=== PATIENT | male | born 1965 | race Caucasian/White ===

== ENCOUNTER 2017-12-29 07:21 | Inpatient (IN) ==
[2017-12-29 08:19] LABS: Basophils % 0.8 % (0.0-0.8); Eosinophils % 0.6 % (0.00-10.9); Hematocrit 27.9 VOL% (42.0-52.0); Hemoglobin 9.4 GM/DL (14.0-18.0); Immature Granulocytes % 0.2 %; Immature Granulocytes Absolute 0.01 #; Lymphocytes # 0.5 10*3/uL (1.4-4.0); Lymphocytes % 10.6 % (21.2-54.2); Mean Corpuscular HGB Conc 33.7 GM/DL (32-36); Mean Corpuscular Hemoglobin 30 PG (27-34); Mean Corpuscular Volume 88.9 FL (87-102); Mean Platelet Volume 11.2 FL (9.6-12.0); Monocytes # 0.9 10*3/uL (0.11-0.8); Monocytes % 17.6 % (1.7-12.7); Neutrophils # 3.5 10*3/uL (1.4-7.4); Neutrophils % 70.2 % (38.7-73.9); Platelet Count 167 T/CUMM (130-400); Red Blood Count 3.14 MC/CUMM (3.8-5.5); Red Cell Distribution Width 20.2 % (9.3-17.3)
[2017-12-29] MEDS: SODIUM CHLORIDE 0.9% 1,000 ML IV SCH (08:20)
[2017-12-29 08:28] LABS: INR 1.7; PT Patient Result 17.8 SECS; Partial Thromboplastin Time 39.5 SECS (0-40)
[2017-12-29 08:37] LABS: Ammonia 33 UMOL/L (11-32)
[2017-12-29 08:42] LABS: Alanine Aminotransferase 31 U/L (16-61); Albumin 3.3 G/DL (3.4-5.0); Alkaline Phosphatase 114 U/L (45-117); Aspartate Amino Transferase 50 U/L (0-37); Band Neutrophils 1 % (0-10); Blood Urea Nitrogen 18 MG/DL (7-18); Calcium 8.3 MG/DL (8.5-10.1); Eosinophils 1 % (0-10); Glucose 110 MG/DL (74-106); Lymphocytes 11 % (20-55); Osmolality,Calculated 262.8 MOS/KG (273-304); Platelet Estimate Normal; Potassium 4.8 MMOL/L (3.5-5.1); Segmented Neutrophils 78 % (50-85); Sodium 130 MMOL/L (136-145); Total Cells Counted 100; Total Protein 7.3 G/DL (6.4-8.3)
[2017-12-29 08:43] LABS: Burr Cells Slight; Hypochromasia 1+; Microcytosis Slight
[2017-12-29] MEDS ORDERED: ONDANSETRON 4 MG/2 ML VIAL IV PRN (11:16)
[2017-12-29] MEDS: FOLIC ACID 1 MG TABLET PO SCH (13:34)
[2017-12-29] MEDS: LEVOFLOXACIN INJ 500 MG in PREMIX 1 EACH IV SCH (13:34)
[2017-12-29] MEDS: THIAMINE 100 MG TABLET PO SCH (13:34)
[2017-12-29] MEDS: MULTIVITAMIN (CENTRUM) TABLET PO SCH (13:34)
[2017-12-29] MEDS: LACTULOSE 20 GM/30 ML UDCUP PO SCH ×3 (13:34→21:05)
[2017-12-29] MEDS: LORazepam 2 MG/1 ML VIAL IV PRN (21:05)
[2017-12-29] MEDS: FUROSEMIDE 40 MG TABLET PO SCH (21:05)
[2017-12-30] MEDS: LACTULOSE 20 GM/30 ML UDCUP PO SCH ×6 (01:16→21:55)
[2017-12-30 05:47] LABS: Basophils % 0.5 % (0.0-0.8); Eosinophils % 0.7 % (0.00-10.9); Hematocrit 26.4 VOL% (42.0-52.0); Hemoglobin 8.9 GM/DL (14.0-18.0); Immature Granulocytes % 0.3 %; Immature Granulocytes Absolute 0.02 #; Lymphocytes # 1.1 10*3/uL (1.4-4.0); Lymphocytes % 17.6 % (21.2-54.2); Mean Corpuscular HGB Conc 33.7 GM/DL (32-36); Mean Corpuscular Hemoglobin 29 PG (27-34); Mean Corpuscular Volume 86.8 FL (87-102); Mean Platelet Volume 11.9 FL (9.6-12.0); Neutrophils # 3.9 10*3/uL (1.4-7.4); Neutrophils % 64.9 % (38.7-73.9); Platelet Count 163 T/CUMM (130-400); Red Blood Count 3.04 MC/CUMM (3.8-5.5); Red Cell Distribution Width 19.9 % (9.3-17.3)
[2017-12-30 06:16] LABS: Band Neutrophils 1 % (0-10); Eosinophils 2 % (0-10); Lymphocytes 15 % (20-55); Metamyelocytes 1 %; Segmented Neutrophils 69 % (50-85); Total Cells Counted 100
[2017-12-30 06:17] LABS: Acanthocytes Few; Burr Cells 1+; Hypochromasia 1+; Microcytosis 1+
[2017-12-30 06:18] LABS: Target Cells Slight
[2017-12-30] MEDS: LORazepam 2 MG/1 ML VIAL IV PRN ×2 (06:22→11:42)
[2017-12-30 07:14] LABS: Albumin 3.2 G/DL (3.4-5.0); Bilirubin,Total 11.5 MG/DL (0.2-1.0); Calcium 8.7 MG/DL (8.5-10.1); Osmolality,Calculated 259.1 MOS/KG (273-304); Total Protein 6.9 G/DL (6.4-8.3)
[2017-12-30] MEDS: FUROSEMIDE 40 MG TABLET PO SCH ×2 (09:51→20:11)
[2017-12-30] MEDS: PANTOPRAZOLE 40 MG TABLET PO SCH (09:51)
[2017-12-30] MEDS: MULTIVITAMIN (CENTRUM) TABLET PO SCH (09:51)
[2017-12-30] MEDS: THIAMINE 100 MG TABLET PO SCH (09:51)
[2017-12-30] MEDS: FOLIC ACID 1 MG TABLET PO SCH (09:51)
[2017-12-30] MEDS: SPIRONOLACTONE 50 MG TABLET PO SCH (09:51)
[2017-12-30] MEDS: LEVOFLOXACIN INJ 500 MG in PREMIX 1 EACH IV SCH (11:44)
[2017-12-30] MEDS ORDERED: HALOPERIDOL 5 MG/ML AMP IV PRN (13:22)
[2017-12-30] MEDS ORDERED: SODIUM CHLORIDE 0.9% 1,000 ML IV SCH (13:30)
[2017-12-30] MEDS: SODIUM CHLORIDE 0.9% 1,000 ML IV SCH (14:22)
[2017-12-30] MEDS: RIFAXIMIN 550 MG TABLET PO SCH ×2 (14:23→20:11)
[2017-12-31] MEDS: SODIUM CHLORIDE 0.9% 1,000 ML IV SCH (00:05)
[2017-12-31] MEDS: LACTULOSE 20 GM/30 ML UDCUP PO SCH ×5 (02:50→21:14)
[2017-12-31 05:43] LABS: Basophils # 0.1 10*3/uL (0.0-0.2); Basophils % 1.1 % (0.0-0.8); Eosinophils % 0.7 % (0.00-10.9); Hematocrit 26.1 VOL% (42.0-52.0); Hemoglobin 8.9 GM/DL (14.0-18.0); Immature Granulocytes % 0.2 %; Immature Granulocytes Absolute 0.01 #; Lymphocytes # 1.2 10*3/uL (1.4-4.0); Lymphocytes % 21.4 % (21.2-54.2); Mean Corpuscular HGB Conc 34.1 GM/DL (32-36); Mean Corpuscular Hemoglobin 29 PG (27-34); Mean Corpuscular Volume 85.6 FL (87-102); Mean Platelet Volume 9.6 FL (9.6-12.0); Monocytes % 18.2 % (1.7-12.7); Neutrophils # 3.2 10*3/uL (1.4-7.4); Neutrophils % 58.4 % (38.7-73.9); Platelet Count 143 T/CUMM (130-400); Red Blood Count 3.05 MC/CUMM (3.8-5.5); Red Cell Distribution Width 19.6 % (9.3-17.3); White Blood Count 5.4 T/CUMM (4-12)
[2017-12-31 06:17] LABS: Burr Cells Slight; Eosinophils 2 % (0-10); Hypochromasia 1+; Lymphocytes 15 % (20-55); Microcytosis 1+; Ovalocytes Slight; Platelet Estimate Normal; Segmented Neutrophils 69 % (50-85); Total Cells Counted 100
[2017-12-31 06:22] LABS: Albumin 2.9 G/DL (3.4-5.0); Osmolality,Calculated 265.5 MOS/KG (273-304); Potassium 3.9 MMOL/L (3.5-5.1); Total Protein 6.7 G/DL (6.4-8.3)
[2017-12-31 06:25] LABS: Bilirubin,Total 13.1 MG/DL (0.2-1.0)
[2017-12-31] MEDS: FOLIC ACID 1 MG TABLET PO SCH (08:45)
[2017-12-31] MEDS: MULTIVITAMIN (CENTRUM) TABLET PO SCH (08:45)
[2017-12-31] MEDS: SPIRONOLACTONE 50 MG TABLET PO SCH (08:45)
[2017-12-31] MEDS: RIFAXIMIN 550 MG TABLET PO SCH ×2 (08:45→21:14)
[2017-12-31] MEDS: PANTOPRAZOLE 40 MG TABLET PO SCH (08:45)
[2017-12-31] MEDS: FUROSEMIDE 40 MG TABLET PO SCH (08:45)
[2017-12-31] MEDS: THIAMINE 100 MG TABLET PO SCH (08:45)
[2017-12-31] MEDS: LEVOFLOXACIN INJ 500 MG in PREMIX 1 EACH IV SCH (11:37)
[2017-12-31 12:21] LABS: Apearance,Urine CLEAR (Clear); Bilirubin,Urine Negative (Negative); Blood, Urine Negative (Negative); Glucose,Urine (UA) Negative (Negative); Hyaline Casts,Urine 10 /LPF (0-3); Ketones,Urine Negative (Negative); Mucus,Urine Occasional /LPF (Occasional); Nitrite,Urine Negative (Negative); Protein,Urine Negative; RBC,Urine 1 /HPF (0-4); Squamous Epithelial Cell,Urine Occasional /HPF (0-10); Urine Color Yellow (Yellow); Urine Specific Gravity 1.006 (1.001-1.035); Urine Urobilinogen < 2.0 EU/DL (0.2-1.0); WBC,Urine 1 /HPF (0-6)
[2018-01-01] MEDS: LACTULOSE 20 GM/30 ML UDCUP PO SCH ×3 (05:48→21:38)
[2018-01-01 06:24] LABS: Basophils % 0.7 % (0.0-0.8); Eosinophils # 0.1 10*3/uL (0.0-0.87); Hematocrit 24.7 VOL% (42.0-52.0); Hemoglobin 8.5 GM/DL (14.0-18.0); Immature Granulocytes % 0.2 %; Immature Granulocytes Absolute 0.01 #; Lymphocytes # 1.2 10*3/uL (1.4-4.0); Lymphocytes % 22.1 % (21.2-54.2); Mean Corpuscular HGB Conc 34.4 GM/DL (32-36); Mean Corpuscular Hemoglobin 29 PG (27-34); Mean Corpuscular Volume 85.5 FL (87-102); Mean Platelet Volume 10.7 FL (9.6-12.0); Monocytes # 0.8 10*3/uL (0.11-0.8); Monocytes % 14.3 % (1.7-12.7); Neutrophils # 3.3 10*3/uL (1.4-7.4); Neutrophils % 60.7 % (38.7-73.9); Platelet Count 144 T/CUMM (130-400); Red Blood Count 2.89 MC/CUMM (3.8-5.5); Red Cell Distribution Width 18.6 % (9.3-17.3); White Blood Count 5.5 T/CUMM (4-12)
[2018-01-01 07:08] LABS: Albumin 2.6 G/DL (3.4-5.0); Bilirubin,Total 10.2 MG/DL (0.2-1.0); Calcium 8.2 MG/DL (8.5-10.1); Osmolality,Calculated 255.2 MOS/KG (273-304); Potassium 3.7 MMOL/L (3.5-5.1); Total Protein 6.2 G/DL (6.4-8.3)
[2018-01-01] MEDS: RIFAXIMIN 550 MG TABLET PO SCH ×2 (08:29→21:38)
[2018-01-01] MEDS: SPIRONOLACTONE 50 MG TABLET PO SCH (08:29)
[2018-01-01] MEDS: PANTOPRAZOLE 40 MG TABLET PO SCH (08:29)
[2018-01-01] MEDS: MULTIVITAMIN (CENTRUM) TABLET PO SCH (08:29)
[2018-01-01] MEDS: FOLIC ACID 1 MG TABLET PO SCH (08:29)
[2018-01-01] MEDS: THIAMINE 100 MG TABLET PO SCH (08:30)
[2018-01-01] MEDS ORDERED: FUROSEMIDE 40 MG TABLET PO SCH (09:00)
[2018-01-01] MEDS ORDERED: MAGNESIUM SULF RIDER 2 GM in PREMIX 1 EACH IV ONE (12:36)
[2018-01-01] MEDS ORDERED: SPIRONOLACTONE 50 MG TABLET PO SCH (12:36)
[2018-01-01] MEDS ORDERED: FUROSEMIDE 20 MG TABLET PO SCH (12:36)
[2018-01-01] MEDS ORDERED: traZODone 50 MG TABLET PO PRN (12:37)
[2018-01-01] MEDS: LEVOFLOXACIN INJ 500 MG in PREMIX 1 EACH IV SCH (13:10)
[2018-01-01] MEDS ORDERED: CIPROFLOXACIN 500 MG TABLET PO SCH (13:30)
[2018-01-02 04:23] LABS: Basophils % 0.6 % (0.0-0.8); Eosinophils # 0.1 10*3/uL (0.0-0.87); Eosinophils % 2.1 % (0.00-10.9); Hematocrit 24.2 VOL% (42.0-52.0); Hemoglobin 8.1 GM/DL (14.0-18.0); Immature Granulocytes % 0.3 %; Immature Granulocytes Absolute 0.02 #; Lymphocytes # 1.1 10*3/uL (1.4-4.0); Lymphocytes % 16.4 % (21.2-54.2); Mean Corpuscular HGB Conc 33.5 GM/DL (32-36); Mean Corpuscular Hemoglobin 29 PG (27-34); Mean Corpuscular Volume 87.1 FL (87-102); Mean Platelet Volume 9.6 FL (9.6-12.0); Monocytes # 1.2 10*3/uL (0.11-0.8); Monocytes % 17.7 % (1.7-12.7); Neutrophils # 4.2 10*3/uL (1.4-7.4); Neutrophils % 62.9 % (38.7-73.9); Platelet Count 117 T/CUMM (130-400); Red Blood Count 2.78 MC/CUMM (3.8-5.5); Red Cell Distribution Width 18.6 % (9.3-17.3); White Blood Count 6.7 T/CUMM (4-12)
[2018-01-02 05:00] LABS: Acanthocytes 1+; Band Neutrophils 4 % (0-10); Lymphocytes 29 % (20-55); Platelet Estimate Decreased; Schistocytes Few; Segmented Neutrophils 60 % (50-85); Total Cells Counted 100
[2018-01-02 05:04] LABS: Albumin 2.5 G/DL (3.4-5.0); Bilirubin,Direct 3.88 MG/DL (0.0-0.20); Bilirubin,Indirect 5.3 MG/DL (0.0-1.0); Bilirubin,Total 9.2 MG/DL (0.2-1.0); Calcium 8.3 MG/DL (8.5-10.1); Osmolality,Calculated 259.1 MOS/KG (273-304); Potassium 3.9 MMOL/L (3.5-5.1); Total Protein 6.2 G/DL (6.4-8.3)
[2018-01-02] MEDS: LACTULOSE 20 GM/30 ML UDCUP PO SCH (05:47)
[2018-01-02 07:59] VITALS: BP 130/73
[2018-01-02] MEDS: MULTIVITAMIN (CENTRUM) TABLET PO SCH (08:01)
[2018-01-02] MEDS: PANTOPRAZOLE 40 MG TABLET PO SCH (08:02)
[2018-01-02] MEDS: THIAMINE 100 MG TABLET PO SCH (08:02)
[2018-01-02] MEDS: RIFAXIMIN 550 MG TABLET PO SCH (08:02)
[2018-01-02] MEDS: FOLIC ACID 1 MG TABLET PO SCH (08:02)
== END 2018-01-02 11:45 | disposition home or self-care (01) | DRG 441 ==
LOC: N.ED 07:21 → N.EDINP 09:03 → SUATTDRO 09:03 → N.4E 10:05
PROVIDERS: ADMIT Internal Medicine; ATTEND Internal Medicine

== ENCOUNTER 2018-02-20 13:00 | Inpatient (IN) ==
[2018-02-20 15:04] LABS: Basophils % 0.4 % (0.0-0.8); Eosinophils # 0.5 10*3/uL (0.0-0.87); Eosinophils % 6.3 % (0.00-10.9); Hematocrit 18.2 VOL% (42.0-52.0); Immature Granulocytes % 1.3 %; Immature Granulocytes Absolute 0.11 #; Lymphocytes # 0.8 10*3/uL (1.4-4.0); Lymphocytes % 9.9 % (21.2-54.2); Mean Corpuscular HGB Conc 34.6 GM/DL (32-36); Mean Corpuscular Hemoglobin 32 PG (27-34); Mean Corpuscular Volume 92.9 FL (87-102); Mean Platelet Volume 9.3 FL (9.6-12.0); Monocytes # 0.9 10*3/uL (0.11-0.8); Monocytes % 10.3 % (1.7-12.7); Neutrophils % 71.8 % (38.7-73.9); Red Blood Count 1.96 MC/CUMM (3.8-5.5); Red Cell Distribution Width 16.3 % (9.3-17.3); White Blood Count 8.3 T/CUMM (4-12)
[2018-02-20 15:07] LABS: Platelet Count 76 T/CUMM (130-400)
[2018-02-20 15:09] LABS: Hemoglobin 6.3 GM/DL (14.0-18.0)
[2018-02-20 15:14] LABS: INR 1.8; PT Patient Result 18.8 SECS
[2018-02-20 15:15] LABS: Partial Thromboplastin Time 49.3 SECS (0-40)
[2018-02-20 15:21] LABS: Albumin 2.2 G/DL (3.4-5.0); Calcium 8.2 MG/DL (8.5-10.1); Osmolality,Calculated 250.1 MOS/KG (273-304); Potassium 3.9 MMOL/L (3.5-5.1); Total Protein 5.3 G/DL (6.4-8.3)
[2018-02-20 15:25] LABS: Bilirubin,Total 16.4 MG/DL (0.2-1.0)
[2018-02-20] MEDS ORDERED: LACTATED RINGERS 500 ML IV ONE (15:29)
[2018-02-20] MEDS ORDERED: AZITHROMYCIN INJ 500 MG in SODIUM CHLORIDE 0.9% 250 ML IV STA (15:30)
[2018-02-20] MEDS ORDERED: VANCOMYCIN INJ 1,500 MG in SODIUM CHLORIDE 0.9% 500 ML IV STA (15:30)
[2018-02-20] MEDS ORDERED: CEFEPIME 1,000 MG in SODIUM CHLORIDE 0.9% 100 ML IV STA (15:30)
[2018-02-20] MEDS ORDERED: ONDANSETRON 4 MG/2 ML VIAL IV PRN (15:51)
[2018-02-20] MEDS ORDERED: ACETAMINOPHEN 325 MG TABLET PO PRN (15:51)
[2018-02-20] MEDS ORDERED: DOCUSATE SODIUM 100 MG CAPSULE PO PRN (15:51)
[2018-02-20 16:00] LABS: Acanthocytes 4+
[2018-02-20 16:01] LABS: Anisocytosis 2+; Hypochromasia 1+; Poikilocytosis 2+
[2018-02-20 16:02] LABS: Platelet Estimate Decreased; Polychromasia Few; Target Cells Slight
[2018-02-20] MEDS ORDERED: SODIUM CHLORIDE 0.9% 1,000 ML IV PRN (16:30)
[2018-02-20] MEDS ORDERED: AZITHROMYCIN 500 MG VIAL IV ONE (16:32)
[2018-02-20] MEDS ORDERED: PNEUMOCOCCAL VACCINE (23 VALENT) 0.5 ML VIAL IM ONE (17:19)
[2018-02-20] MEDS: ALBUTEROL 2.5 MG/3 ML NEB RESP TX SCH (19:13)
[2018-02-20] MEDS: RIFAXIMIN 550 MG TABLET PO SCH (21:02)
[2018-02-20] MEDS: LACTULOSE 20 GM/30 ML UDCUP PO SCH (21:02)
[2018-02-20] MEDS: CIPROFLOXACIN 500 MG TABLET PO SCH (21:08)
[2018-02-20] MEDS: cefTRIAXone 2,000 MG in SYRINGE 1 EACH IV SCH (21:59)
[2018-02-20] MEDS: FAMOTIDINE 20 MG/2 ML VIAL IV SCH (21:59)
[2018-02-20] MEDS ORDERED: ZALEPLON 5 MG CAPSULE PO PRN (22:23)
[2018-02-21] MEDS: ALBUTEROL 2.5 MG/3 ML NEB RESP TX SCH ×4 (00:40→18:51)
[2018-02-21 02:45] LABS: Basophils % 0.4 % (0.0-0.8); Eosinophils # 0.6 10*3/uL (0.0-0.87); Eosinophils % 7.7 % (0.00-10.9); Hematocrit 19.1 VOL% (42.0-52.0); Hemoglobin 6.5 GM/DL (14.0-18.0); Immature Granulocytes % 1.1 %; Immature Granulocytes Absolute 0.09 #; Lymphocytes # 0.9 10*3/uL (1.4-4.0); Mean Corpuscular Hemoglobin 32 PG (27-34); Mean Corpuscular Volume 94.1 FL (87-102); Mean Platelet Volume 9.3 FL (9.6-12.0); Monocytes # 0.9 10*3/uL (0.11-0.8); Monocytes % 10.9 % (1.7-12.7); Neutrophils # 5.6 10*3/uL (1.4-7.4); Neutrophils % 68.9 % (38.7-73.9); Red Blood Count 2.03 MC/CUMM (3.8-5.5); Red Cell Distribution Width 15.9 % (9.3-17.3); White Blood Count 8.2 T/CUMM (4-12)
[2018-02-21 02:49] LABS: Platelet Count 62 T/CUMM (130-400)
[2018-02-21 03:02] LABS: Osmolality,Calculated 250.1 MOS/KG (273-304); Potassium 3.7 MMOL/L (3.5-5.1)
[2018-02-21 03:08] LABS: Ferritin 533.3 ng/ml (26-388)
[2018-02-21 03:20] LABS: Folate 13.7 NG/ML (5.4-24.0); Vitamin B12 > 2000 PG/ML (211-911)
[2018-02-21 04:36] LABS: Sedimentation Rate-Westergren 8 MM/HR (0-20)
[2018-02-21 04:38] LABS: Acanthocytes Few; Anisocytosis 1+; Burr Cells Few; Macrocytosis 1+; Ovalocytes 1+; Platelet Estimate Decreased
[2018-02-21 05:12] LABS: Apearance,Urine Slightly Hazy (Clear); Bacteria,Urine Occasional /HPF (Few); Blood, Urine Negative (Negative); Glucose,Urine (UA) Negative (Negative); Hyaline Casts,Urine 6 /LPF (0-3); Ketones,Urine Negative (Negative); Mucus,Urine Occasional /LPF (Occasional); Nitrite,Urine Negative (Negative); Protein,Urine Negative; Urine Color Amber (Yellow); Urine Specific Gravity 1.012 (1.001-1.035); WBC,Urine 3 /HPF (0-6)
[2018-02-21 05:14] LABS: Bilirubin,Urine Moderate mg/dL (Negative)
[2018-02-21] MEDS ORDERED: SODIUM CHLORIDE 0.9% 1,000 ML IV PRN (08:01)
[2018-02-21] MEDS: SPIRONOLACTONE 50 MG TABLET PO SCH (09:49)
[2018-02-21] MEDS: FOLIC ACID 1 MG TABLET PO SCH (09:50)
[2018-02-21] MEDS: PANTOPRAZOLE 40 MG TABLET PO SCH (09:50)
[2018-02-21] MEDS: THIAMINE 100 MG TABLET PO SCH (09:50)
[2018-02-21] MEDS: LACTULOSE 20 GM/30 ML UDCUP PO SCH ×3 (09:50→21:20)
[2018-02-21] MEDS: RIFAXIMIN 550 MG TABLET PO SCH ×2 (09:50→21:20)
[2018-02-21] MEDS ORDERED: LIDOCAINE 2% VISCOUS 100 ML BOTTLE SWISH/SPIT PRN (10:16)
[2018-02-21] MEDS ORDERED: ALBUMIN IV ONE (14:00)
[2018-02-21 15:04] LABS: Hematocrit 21.2 VOL% (42.0-52.0); Hemoglobin 7.4 GM/DL (14.0-18.0)
[2018-02-21] MEDS: FAMOTIDINE 20 MG/2 ML VIAL IV SCH (15:48)
[2018-02-21] MEDS: AZITHROMYCIN INJ 500 MG in SODIUM CHLORIDE 0.9% 250 ML IV SCH (20:15)
[2018-02-21] MEDS: cefTRIAXone 2,000 MG in SYRINGE 1 EACH IV SCH (21:20)
[2018-02-21] MEDS: CIPROFLOXACIN 500 MG TABLET PO SCH (21:20)
[2018-02-21] MEDS ORDERED: SIMETHICONE CHEW 125 MG TABLET PO ONE (23:04)
[2018-02-22] MEDS: ALBUTEROL 2.5 MG/3 ML NEB RESP TX SCH ×4 (00:35→19:06)
[2018-02-22 03:14] LABS: Basophils % 0.6 % (0.0-0.8); Eosinophils # 0.6 10*3/uL (0.0-0.87); Eosinophils % 9.4 % (0.00-10.9); Hematocrit 18.4 VOL% (42.0-52.0); Hemoglobin 6.5 GM/DL (14.0-18.0); Immature Granulocytes % 1.2 %; Immature Granulocytes Absolute 0.08 #; Lymphocytes # 0.6 10*3/uL (1.4-4.0); Lymphocytes % 9.8 % (21.2-54.2); Mean Corpuscular HGB Conc 35.3 GM/DL (32-36); Mean Corpuscular Hemoglobin 33 PG (27-34); Mean Platelet Volume 9.5 FL (9.6-12.0); Monocytes # 0.7 10*3/uL (0.11-0.8); Monocytes % 10.2 % (1.7-12.7); Neutrophils # 4.4 10*3/uL (1.4-7.4); Neutrophils % 68.8 % (38.7-73.9); Red Cell Distribution Width 16.3 % (9.3-17.3); White Blood Count 6.5 T/CUMM (4-12)
[2018-02-22 03:17] LABS: Platelet Count 37 T/CUMM (130-400)
[2018-02-22 03:25] LABS: Calcium 8.2 MG/DL (8.5-10.1); Osmolality,Calculated 253.8 MOS/KG (273-304); Potassium 3.8 MMOL/L (3.5-5.1)
[2018-02-22 03:56] LABS: Acanthocytes 3+; Hypochromasia 1+; Target Cells Few
[2018-02-22 03:57] LABS: Platelet Estimate Decreased; Polychromasia Few
[2018-02-22] MEDS ORDERED: SODIUM CHLORIDE 0.9% 1,000 ML IV PRN (08:15)
[2018-02-22] MEDS: FOLIC ACID 1 MG TABLET PO SCH (09:33)
[2018-02-22] MEDS: THIAMINE 100 MG TABLET PO SCH (09:33)
[2018-02-22] MEDS: SPIRONOLACTONE 50 MG TABLET PO SCH (09:33)
[2018-02-22] MEDS: PANTOPRAZOLE 40 MG TABLET PO SCH (09:33)
[2018-02-22] MEDS: LACTULOSE 20 GM/30 ML UDCUP PO SCH ×3 (09:33→20:51)
[2018-02-22] MEDS: RIFAXIMIN 550 MG TABLET PO SCH ×2 (09:34→20:44)
[2018-02-22 09:37] LABS: Hemoglobin A1 (Alkaline) 97.2 % (96.5-98.5); Hemoglobin A2 (Alkaline) 2.8 % (1.5-3.5)
[2018-02-22] MEDS: ALUMINUM/MAGNES/SIMETH MAX STR 30 ML UDCUP PO PRN ×2 (16:07→21:53)
[2018-02-22] MEDS: MEROPENEM 1,000 MG in SODIUM CHLORIDE 0.9% 100 ML IV SCH (16:07)
[2018-02-22] MEDS: SODIUM BICARB INJ 150 MEQ in STERILE WATER INJ 850 ML IV SCH (16:11)
[2018-02-22] MEDS: SIMETHICONE CHEW 80 MG TABLET PO SCH ×2 (18:27→20:44)
[2018-02-22] MEDS: FAMOTIDINE 20 MG/2 ML VIAL IV SCH (20:45)
[2018-02-22] MEDS: AZITHROMYCIN INJ 500 MG in SODIUM CHLORIDE 0.9% 250 ML IV SCH (20:51)
[2018-02-22] MEDS: CIPROFLOXACIN 500 MG TABLET PO SCH (21:02)
[2018-02-23] MEDS: ALBUTEROL 2.5 MG/3 ML NEB RESP TX SCH ×4 (00:21→19:00)
[2018-02-23] MEDS: MEROPENEM 1,000 MG in SODIUM CHLORIDE 0.9% 100 ML IV SCH ×2 (03:36→20:34)
[2018-02-23 05:58] LABS: Basophils % 0.4 % (0.0-0.8); Eosinophils # 0.3 10*3/uL (0.0-0.87); Eosinophils % 3.4 % (0.00-10.9); Hemoglobin 8.9 GM/DL (14.0-18.0); Immature Granulocytes % 1.3 %; Immature Granulocytes Absolute 0.11 #; Lymphocytes # 0.4 10*3/uL (1.4-4.0); Lymphocytes % 5.2 % (21.2-54.2); Mean Corpuscular HGB Conc 35.6 GM/DL (32-36); Mean Corpuscular Hemoglobin 32 PG (27-34); Mean Corpuscular Volume 89.3 FL (87-102); Mean Platelet Volume 10.1 FL (9.6-12.0); Monocytes # 0.9 10*3/uL (0.11-0.8); Monocytes % 10.5 % (1.7-12.7); Neutrophils # 6.5 10*3/uL (1.4-7.4); Neutrophils % 79.2 % (38.7-73.9); Red Cell Distribution Width 15.9 % (9.3-17.3); White Blood Count 8.2 T/CUMM (4-12)
[2018-02-23 06:04] LABS: Platelet Count 43 T/CUMM (130-400)
[2018-02-23 06:30] LABS: Microcytosis 1+
[2018-02-23 06:31] LABS: Acanthocytes Few; Burr Cells 1+; Hypochromasia 1+
[2018-02-23 06:32] LABS: Calcium 8.5 MG/DL (8.5-10.1); Osmolality,Calculated 255.6 MOS/KG (273-304); Platelet Estimate Decreased; Potassium 4.1 MMOL/L (3.5-5.1)
[2018-02-23 06:37] LABS: Bilirubin,Total 17.3 MG/DL (0.2-1.0)
[2018-02-23] MEDS: LACTULOSE 20 GM/30 ML UDCUP PO SCH ×3 (11:04→21:45)
[2018-02-23] MEDS: SPIRONOLACTONE 50 MG TABLET PO SCH (11:04)
[2018-02-23] MEDS: FOLIC ACID 1 MG TABLET PO SCH (11:04)
[2018-02-23] MEDS: SIMETHICONE CHEW 80 MG TABLET PO SCH ×4 (11:05→21:48)
[2018-02-23] MEDS: PANTOPRAZOLE 40 MG TABLET PO SCH (11:05)
[2018-02-23] MEDS: THIAMINE 100 MG TABLET PO SCH (11:05)
[2018-02-23] MEDS: RIFAXIMIN 550 MG TABLET PO SCH ×2 (11:05→21:47)
[2018-02-23] MEDS ORDERED: OXYMETAZOLINE 0.05% NASAL SPRAY 15 ML BOTTLE BOTH NARES PRN (13:57)
[2018-02-23] MEDS ORDERED: ALBUMIN IV ONE (14:00)
[2018-02-23] MEDS: SODIUM BICARB INJ 150 MEQ in STERILE WATER INJ 850 ML IV SCH (14:33)
[2018-02-23] MEDS: ALBUMIN IV ONE ×2 (15:58→17:02)
[2018-02-23] MEDS: FAMOTIDINE 20 MG/2 ML VIAL IV SCH (21:45)
[2018-02-23] MEDS: CIPROFLOXACIN 500 MG TABLET PO SCH (21:48)
[2018-02-23] MEDS: AZITHROMYCIN INJ 500 MG in SODIUM CHLORIDE 0.9% 250 ML IV SCH (21:53)
[2018-02-24] MEDS: ALBUTEROL 2.5 MG/3 ML NEB RESP TX SCH ×4 (00:10→19:04)
[2018-02-24] MEDS: MEROPENEM 1,000 MG in SODIUM CHLORIDE 0.9% 100 ML IV SCH ×2 (01:53→14:36)
[2018-02-24 07:39] LABS: Basophils % 0.4 % (0.0-0.8); Eosinophils # 0.5 10*3/uL (0.0-0.87); Hematocrit 20.9 VOL% (42.0-52.0); Hemoglobin 7.6 GM/DL (14.0-18.0); Immature Granulocytes % 1.6 %; Immature Granulocytes Absolute 0.11 #; Lymphocytes # 0.5 10*3/uL (1.4-4.0); Lymphocytes % 7.7 % (21.2-54.2); Mean Corpuscular HGB Conc 36.4 GM/DL (32-36); Mean Corpuscular Hemoglobin 32 PG (27-34); Mean Corpuscular Volume 88.2 FL (87-102); Mean Platelet Volume 9.2 FL (9.6-12.0); Monocytes # 0.9 10*3/uL (0.11-0.8); Monocytes % 13.3 % (1.7-12.7); Neutrophils # 4.9 10*3/uL (1.4-7.4); Red Blood Count 2.37 MC/CUMM (3.8-5.5); Red Cell Distribution Width 16.3 % (9.3-17.3)
[2018-02-24 07:51] LABS: Platelet Count 36 T/CUMM (130-400)
[2018-02-24 07:59] LABS: Hypochromasia 1+; Platelet Estimate Decreased
[2018-02-24 08:00] LABS: Microcytosis 1+
[2018-02-24 08:14] LABS: Albumin 3.1 G/DL (3.4-5.0); Calcium 8.6 MG/DL (8.5-10.1); Osmolality,Calculated 255.6 MOS/KG (273-304); Potassium 4.1 MMOL/L (3.5-5.1); Total Protein 5.1 G/DL (6.4-8.3)
[2018-02-24 08:18] LABS: Bilirubin,Total 16.8 MG/DL (0.2-1.0)
[2018-02-24] MEDS ORDERED: SODIUM CHLORIDE 0.9% 1,000 ML IV PRN (08:37)
[2018-02-24] MEDS: FOLIC ACID 1 MG TABLET PO SCH (09:30)
[2018-02-24] MEDS: SPIRONOLACTONE 50 MG TABLET PO SCH (09:30)
[2018-02-24] MEDS: RIFAXIMIN 550 MG TABLET PO SCH ×2 (09:30→22:04)
[2018-02-24] MEDS: THIAMINE 100 MG TABLET PO SCH (09:30)
[2018-02-24] MEDS: SIMETHICONE CHEW 80 MG TABLET PO SCH ×4 (09:31→22:04)
[2018-02-24] MEDS: PANTOPRAZOLE 40 MG TABLET PO SCH (09:31)
[2018-02-24] MEDS: LACTULOSE 20 GM/30 ML UDCUP PO SCH ×3 (09:31→22:03)
[2018-02-24] MEDS: SODIUM BICARB INJ 150 MEQ in STERILE WATER INJ 850 ML IV SCH (16:33)
[2018-02-24] MEDS: CIPROFLOXACIN 500 MG TABLET PO SCH (22:04)
[2018-02-24] MEDS: FAMOTIDINE 20 MG/2 ML VIAL IV SCH (22:08)
[2018-02-24] MEDS: AZITHROMYCIN INJ 500 MG in SODIUM CHLORIDE 0.9% 250 ML IV SCH (23:07)
[2018-02-25] MEDS: ALBUTEROL 2.5 MG/3 ML NEB RESP TX SCH ×3 (01:11→12:24)
[2018-02-25] MEDS: MEROPENEM 1,000 MG in SODIUM CHLORIDE 0.9% 100 ML IV SCH (03:42)
[2018-02-25 05:33] LABS: Basophils % 0.5 % (0.0-0.8); Eosinophils # 0.7 10*3/uL (0.0-0.87); Eosinophils % 8.1 % (0.00-10.9); Hematocrit 24.3 VOL% (42.0-52.0); Hemoglobin 8.7 GM/DL (14.0-18.0); Immature Granulocytes % 0.9 %; Immature Granulocytes Absolute 0.07 #; Lymphocytes # 0.8 10*3/uL (1.4-4.0); Lymphocytes % 9.5 % (21.2-54.2); Mean Corpuscular HGB Conc 35.8 GM/DL (32-36); Mean Corpuscular Hemoglobin 32 PG (27-34); Mean Corpuscular Volume 89.7 FL (87-102); Mean Platelet Volume 9.4 FL (9.6-12.0); Monocytes # 1.3 10*3/uL (0.11-0.8); Monocytes % 15.8 % (1.7-12.7); Neutrophils # 5.2 10*3/uL (1.4-7.4); Neutrophils % 65.2 % (38.7-73.9); Red Blood Count 2.71 MC/CUMM (3.8-5.5); Red Cell Distribution Width 16.3 % (9.3-17.3)
[2018-02-25 05:37] LABS: Platelet Count 35 T/CUMM (130-400)
[2018-02-25 05:56] LABS: Calcium 8.6 MG/DL (8.5-10.1); Eosinophils 5 % (0-10); Hypochromasia 1+; Lymphocytes 6 % (20-55); Osmolality,Calculated 254.8 MOS/KG (273-304); Ovalocytes Slight; Platelet Estimate Decreased; Potassium 3.9 MMOL/L (3.5-5.1); Segmented Neutrophils 79 % (50-85); Total Cells Counted 100
[2018-02-25 05:57] LABS: Microcytosis Slight
[2018-02-25] MEDS: RIFAXIMIN 550 MG TABLET PO SCH (08:36)
[2018-02-25] MEDS: THIAMINE 100 MG TABLET PO SCH (08:36)
[2018-02-25] MEDS: FOLIC ACID 1 MG TABLET PO SCH (08:36)
[2018-02-25] MEDS: PANTOPRAZOLE 40 MG TABLET PO SCH (08:36)
[2018-02-25] MEDS: SIMETHICONE CHEW 80 MG TABLET PO SCH ×2 (08:36→14:06)
[2018-02-25] MEDS: SPIRONOLACTONE 50 MG TABLET PO SCH (08:36)
[2018-02-25] MEDS: LACTULOSE 20 GM/30 ML UDCUP PO SCH (08:37)
[2018-02-25 11:54] VITALS: BP 119/57
[2018-02-25] MEDS: SODIUM BICARB INJ 150 MEQ in STERILE WATER INJ 850 ML IV SCH (14:06)
== END 2018-02-25 14:18 | disposition home or self-care (01) | DRG 194 ==
LOC: N.ED 13:00 → N.EDINP 15:51 → N.2E 16:22
PROVIDERS: ADMIT Hospitalist; ATTEND Hospitalist

== ENCOUNTER 2018-02-27 12:38 | Inpatient (IN) ==
[2018-02-27 13:11] LABS: Basophils % 0.6 % (0.0-0.8); Eosinophils # 0.4 10*3/uL (0.0-0.87); Eosinophils % 5.7 % (0.00-10.9); Hematocrit 25.2 VOL% (42.0-52.0); Immature Granulocytes % 0.7 %; Immature Granulocytes Absolute 0.05 #; Lymphocytes # 0.4 10*3/uL (1.4-4.0); Lymphocytes % 6.4 % (21.2-54.2); Mean Corpuscular HGB Conc 35.7 GM/DL (32-36); Mean Corpuscular Hemoglobin 33 PG (27-34); Mean Corpuscular Volume 91.3 FL (87-102); Mean Platelet Volume 10.3 FL (9.6-12.0); Monocytes # 1.1 10*3/uL (0.11-0.8); Monocytes % 16.2 % (1.7-12.7); Neutrophils # 4.7 10*3/uL (1.4-7.4); Neutrophils % 70.4 % (38.7-73.9); Red Blood Count 2.76 MC/CUMM (3.8-5.5); Red Cell Distribution Width 16.6 % (9.3-17.3); White Blood Count 6.7 T/CUMM (4-12)
[2018-02-27 13:13] LABS: Platelet Count 37 T/CUMM (130-400)
[2018-02-27 13:35] LABS: Albumin 3.1 G/DL (3.4-5.0); Calcium 8.6 MG/DL (8.5-10.1); Osmolality,Calculated 263.5 MOS/KG (273-304); Total Protein 5.3 G/DL (6.4-8.3)
[2018-02-27] MEDS ORDERED: MEPERIDINE 25 MG/1 ML VIAL IV STA (13:44)
[2018-02-27] MEDS ORDERED: FUROSEMIDE 40 MG/4 ML VIAL IV STA (13:44)
[2018-02-27] MEDS ORDERED: ONDANSETRON 4 MG/2 ML VIAL IV STA (13:44)
[2018-02-27 13:51] LABS: Bilirubin,Total 19.2 MG/DL (0.2-1.0)
[2018-02-27 13:53] LABS: Eosinophils 3 % (0-10); Lymphocytes 10 % (20-55); Segmented Neutrophils 80 % (50-85); Total Cells Counted 100
[2018-02-27 13:55] LABS: Burr Cells 2+; Macrocytosis 1+; Platelet Estimate Decreased
[2018-02-27 14:31] LABS: INR 2.1
[2018-02-27 14:37] LABS: Amylase 54 U/L (25-115); Troponin I 0.037 NG/ML (0.00-0.045)
[2018-02-27 14:46] LABS: PT Patient Result 21.8 SECS; Partial Thromboplastin Time 62.6 SECS (0-40)
[2018-02-27 15:41] LABS: Apearance,Urine CLEAR (Clear); Bilirubin,Urine Negative (Negative); Blood, Urine Negative (Negative); Glucose,Urine (UA) Negative (Negative); Hyaline Casts,Urine 11 /LPF (0-3); Ketones,Urine Negative (Negative); Mucus,Urine Occasional /LPF (Occasional); Nitrite,Urine Negative (Negative); Protein,Urine Negative; RBC,Urine <1 /HPF (0-4); Urine Color Amber (Yellow); Urine Specific Gravity 1.009 (1.001-1.035); Urine Urobilinogen < 2.0 EU/DL (0.2-1.0); WBC,Urine 1 /HPF (0-6)
[2018-02-27 15:42] LABS: Ammonia 34 UMOL/L (11-32)
[2018-02-27 15:48] LABS: Barbiturates Screen,Urine Negative (Negative); Benzodiazepines Screen,Urine Negative (Negative); Cannabinoid Screen,Urine Negative (Negative); Opiate Screen,Urine Negative (Negative); Phencyclidine Screen,Urine Negative (Negative)
[2018-02-27] MEDS ORDERED: ONDANSETRON 4 MG/2 ML VIAL IV PRN (15:53)
[2018-02-27] MEDS ORDERED: HYDROmorphone 2 MG/1 ML VIAL IV PRN (15:59)
[2018-02-27] MEDS: SIMETHICONE CHEW 80 MG TABLET PO SCH ×2 (18:22→21:11)
[2018-02-27] MEDS: MEROPENEM 500 MG in SODIUM CHLORIDE 0.9% 100 ML IV SCH (18:22)
[2018-02-27] MEDS: LACTULOSE 20 GM/30 ML UDCUP PO SCH (21:11)
[2018-02-27] MEDS: RIFAXIMIN 550 MG TABLET PO SCH (21:11)
[2018-02-27] MEDS: SODIUM BICARBONATE 650 MG TABLET PO SCH (21:11)
[2018-02-28 05:18] LABS: Basophils % 0.5 % (0.0-0.8); Eosinophils # 0.4 10*3/uL (0.0-0.87); Eosinophils % 4.3 % (0.00-10.9); Hematocrit 25.6 VOL% (42.0-52.0); Hemoglobin 9.2 GM/DL (14.0-18.0); Immature Granulocytes % 0.9 %; Immature Granulocytes Absolute 0.08 #; Lymphocytes # 0.6 10*3/uL (1.4-4.0); Lymphocytes % 6.7 % (21.2-54.2); Mean Corpuscular HGB Conc 35.9 GM/DL (32-36); Mean Corpuscular Hemoglobin 32 PG (27-34); Mean Corpuscular Volume 88.6 FL (87-102); Mean Platelet Volume 10.3 FL (9.6-12.0); Monocytes # 1.3 10*3/uL (0.11-0.8); Monocytes % 14.9 % (1.7-12.7); Neutrophils # 6.4 10*3/uL (1.4-7.4); Neutrophils % 72.7 % (38.7-73.9); Platelet Count 40 T/CUMM (130-400); Red Blood Count 2.89 MC/CUMM (3.8-5.5); Red Cell Distribution Width 16.3 % (9.3-17.3); White Blood Count 8.8 T/CUMM (4-12)
[2018-02-28 05:36] LABS: Calcium 8.7 MG/DL (8.5-10.1); Osmolality,Calculated 264.2 MOS/KG (273-304)
[2018-02-28 06:13] LABS: Band Neutrophils 3 % (0-10); Lymphocytes 13 % (20-55); Platelet Estimate Decreased; Segmented Neutrophils 81 % (50-85); Total Cells Counted 100
[2018-02-28 06:14] LABS: Acanthocytes 1+
[2018-02-28] MEDS: MEROPENEM 500 MG in SODIUM CHLORIDE 0.9% 100 ML IV SCH ×2 (07:28→18:33)
[2018-02-28] MEDS: LACTULOSE 20 GM/30 ML UDCUP PO SCH ×3 (09:45→20:56)
[2018-02-28] MEDS: SIMETHICONE CHEW 80 MG TABLET PO SCH ×4 (09:45→20:55)
[2018-02-28] MEDS: SODIUM BICARBONATE 650 MG TABLET PO SCH ×2 (09:45→20:55)
[2018-02-28] MEDS: SPIRONOLACTONE 50 MG TABLET PO SCH (09:46)
[2018-02-28] MEDS: RIFAXIMIN 550 MG TABLET PO SCH ×2 (09:46→20:56)
[2018-02-28] MEDS: FOLIC ACID 1 MG TABLET PO SCH (09:46)
[2018-02-28] MEDS: FUROSEMIDE 40 MG/4 ML VIAL IV SCH ×2 (09:46→18:28)
[2018-02-28] MEDS: THIAMINE 100 MG TABLET PO SCH (09:46)
[2018-03-01 03:56] LABS: Basophils % 0.2 % (0.0-0.8); Eosinophils # 0.2 10*3/uL (0.0-0.87); Eosinophils % 2.1 % (0.00-10.9); Hematocrit 23.6 VOL% (42.0-52.0); Hemoglobin 8.4 GM/DL (14.0-18.0); Immature Granulocytes % 1.2 %; Immature Granulocytes Absolute 0.13 #; Lymphocytes # 0.6 10*3/uL (1.4-4.0); Lymphocytes % 5.3 % (21.2-54.2); Mean Corpuscular HGB Conc 35.6 GM/DL (32-36); Mean Corpuscular Hemoglobin 32 PG (27-34); Mean Corpuscular Volume 89.1 FL (87-102); Mean Platelet Volume 9.6 FL (9.6-12.0); Monocytes # 1.6 10*3/uL (0.11-0.8); Monocytes % 15.4 % (1.7-12.7); Neutrophils % 75.8 % (38.7-73.9); Red Blood Count 2.65 MC/CUMM (3.8-5.5); Red Cell Distribution Width 16.5 % (9.3-17.3); White Blood Count 10.5 T/CUMM (4-12)
[2018-03-01 04:07] LABS: Platelet Count 37 T/CUMM (130-400)
[2018-03-01 04:21] LABS: Albumin 2.7 G/DL (3.4-5.0); Bilirubin,Direct 10.41 MG/DL (0.0-0.20); Calcium 8.4 MG/DL (8.5-10.1); Osmolality,Calculated 269.9 MOS/KG (273-304); Potassium 3.9 MMOL/L (3.5-5.1); Total Protein 4.8 G/DL (6.4-8.3)
[2018-03-01 04:23] LABS: Bilirubin,Indirect 8.9 MG/DL (0.0-1.0); Bilirubin,Total 19.3 MG/DL (0.2-1.0)
[2018-03-01 04:36] LABS: Acanthocytes 1+; Lymphocytes 16 % (20-55); Platelet Estimate Decreased; Segmented Neutrophils 76 % (50-85); Total Cells Counted 100
[2018-03-01] MEDS: MEROPENEM 500 MG in SODIUM CHLORIDE 0.9% 100 ML IV SCH ×2 (06:09→18:19)
[2018-03-01] MEDS: FUROSEMIDE 40 MG/4 ML VIAL IV SCH ×2 (09:13→18:16)
[2018-03-01] MEDS: THIAMINE 100 MG TABLET PO SCH (09:18)
[2018-03-01] MEDS: SIMETHICONE CHEW 80 MG TABLET PO SCH ×4 (09:18→21:00)
[2018-03-01] MEDS: SPIRONOLACTONE 50 MG TABLET PO SCH (09:18)
[2018-03-01] MEDS: SODIUM BICARBONATE 650 MG TABLET PO SCH ×2 (09:18→20:35)
[2018-03-01] MEDS: RIFAXIMIN 550 MG TABLET PO SCH ×2 (09:18→20:35)
[2018-03-01] MEDS: FOLIC ACID 1 MG TABLET PO SCH (09:18)
[2018-03-01] MEDS: LACTULOSE 20 GM/30 ML UDCUP PO SCH ×3 (09:19→20:35)
[2018-03-01] MEDS: ALBUMIN 25% 25 GM in PREMIX 1 EACH IV SCH (16:58)
[2018-03-02 05:47] LABS: Basophils % 0.2 % (0.0-0.8); Eosinophils # 0.2 10*3/uL (0.0-0.87); Eosinophils % 2.3 % (0.00-10.9); Hematocrit 22.3 VOL% (42.0-52.0); Immature Granulocytes % 1.1 %; Immature Granulocytes Absolute 0.11 #; Lymphocytes # 0.8 10*3/uL (1.4-4.0); Lymphocytes % 8.4 % (21.2-54.2); Mean Corpuscular HGB Conc 35.9 GM/DL (32-36); Mean Corpuscular Hemoglobin 32 PG (27-34); Mean Corpuscular Volume 89.2 FL (87-102); Mean Platelet Volume 9.9 FL (9.6-12.0); Monocytes # 1.3 10*3/uL (0.11-0.8); Monocytes % 13.3 % (1.7-12.7); Neutrophils # 7.3 10*3/uL (1.4-7.4); Neutrophils % 74.7 % (38.7-73.9); Red Cell Distribution Width 16.6 % (9.3-17.3); White Blood Count 9.8 T/CUMM (4-12)
[2018-03-02] MEDS: MEROPENEM 500 MG in SODIUM CHLORIDE 0.9% 100 ML IV SCH ×2 (05:57→21:47)
[2018-03-02 06:00] LABS: Platelet Count 36 T/CUMM (130-400)
[2018-03-02 06:11] LABS: Burr Cells Slight; Eosinophils 1 % (0-10); Hypochromasia 1+; Lymphocytes 7 % (20-55); Ovalocytes Slight; Platelet Estimate Decreased; Segmented Neutrophils 84 % (50-85); Total Cells Counted 100
[2018-03-02 06:17] LABS: Albumin 2.7 G/DL (3.4-5.0); Bilirubin,Direct 10.25 MG/DL (0.0-0.20); Calcium 8.1 MG/DL (8.5-10.1); Osmolality,Calculated 263.4 MOS/KG (273-304); Potassium 3.9 MMOL/L (3.5-5.1); Total Protein 4.7 G/DL (6.4-8.3)
[2018-03-02 06:43] LABS: Bilirubin,Indirect 8.4 MG/DL (0.0-1.0); Bilirubin,Total 18.6 MG/DL (0.2-1.0)
[2018-03-02] MEDS: ALBUMIN 25% 25 GM in PREMIX 1 EACH IV SCH ×2 (08:09→15:18)
[2018-03-02] MEDS: SODIUM BICARBONATE 650 MG TABLET PO SCH ×2 (09:13→20:30)
[2018-03-02] MEDS: SIMETHICONE CHEW 80 MG TABLET PO SCH ×4 (09:13→20:29)
[2018-03-02] MEDS: THIAMINE 100 MG TABLET PO SCH (09:13)
[2018-03-02] MEDS: SPIRONOLACTONE 50 MG TABLET PO SCH (09:13)
[2018-03-02] MEDS: RIFAXIMIN 550 MG TABLET PO SCH ×2 (09:13→20:29)
[2018-03-02] MEDS: LACTULOSE 20 GM/30 ML UDCUP PO SCH (09:13)
[2018-03-02] MEDS: FOLIC ACID 1 MG TABLET PO SCH (09:14)
[2018-03-02] MEDS: FUROSEMIDE 40 MG/4 ML VIAL IV SCH ×2 (09:20→17:57)
[2018-03-03 04:51] LABS: Basophils % 0.1 % (0.0-0.8); Eosinophils # 0.3 10*3/uL (0.0-0.87); Eosinophils % 2.8 % (0.00-10.9); Hematocrit 21.1 VOL% (42.0-52.0); Hemoglobin 7.5 GM/DL (14.0-18.0); Immature Granulocytes Absolute 0.09 #; Lymphocytes # 0.8 10*3/uL (1.4-4.0); Lymphocytes % 8.2 % (21.2-54.2); Mean Corpuscular HGB Conc 35.5 GM/DL (32-36); Mean Corpuscular Hemoglobin 32 PG (27-34); Mean Corpuscular Volume 89.8 FL (87-102); Mean Platelet Volume 10.1 FL (9.6-12.0); Monocytes # 1.3 10*3/uL (0.11-0.8); Neutrophils # 6.8 10*3/uL (1.4-7.4); Neutrophils % 73.9 % (38.7-73.9); Red Blood Count 2.35 MC/CUMM (3.8-5.5); Red Cell Distribution Width 16.4 % (9.3-17.3); White Blood Count 9.2 T/CUMM (4-12)
[2018-03-03 05:14] LABS: Platelet Count 36 T/CUMM (130-400)
[2018-03-03 05:23] LABS: Albumin 2.9 G/DL (3.4-5.0); Bilirubin,Direct 9.82 MG/DL (0.0-0.20); Bilirubin,Indirect 8.5 MG/DL (0.0-1.0); Osmolality,Calculated 264.5 MOS/KG (273-304); Potassium 3.8 MMOL/L (3.5-5.1); Total Protein 4.7 G/DL (6.4-8.3)
[2018-03-03 05:24] LABS: Bilirubin,Total 18.3 MG/DL (0.2-1.0)
[2018-03-03 05:31] LABS: Burr Cells Slight; Eosinophils 1 % (0-10); Hypochromasia 1+; Lymphocytes 10 % (20-55); Ovalocytes Slight; Platelet Estimate Decreased; Segmented Neutrophils 78 % (50-85); Total Cells Counted 100
[2018-03-03] MEDS ORDERED: SODIUM CHLORIDE 0.9% 1,000 ML IV PRN (07:16)
[2018-03-03] MEDS: ALBUMIN 25% 25 GM in PREMIX 1 EACH IV SCH ×2 (08:35→22:28)
[2018-03-03] MEDS: SIMETHICONE CHEW 80 MG TABLET PO SCH ×4 (08:56→22:17)
[2018-03-03] MEDS: SODIUM BICARBONATE 650 MG TABLET PO SCH ×2 (08:56→22:15)
[2018-03-03] MEDS: FOLIC ACID 1 MG TABLET PO SCH (08:56)
[2018-03-03] MEDS: SPIRONOLACTONE 50 MG TABLET PO SCH (08:56)
[2018-03-03] MEDS: FUROSEMIDE 40 MG/4 ML VIAL IV SCH ×2 (08:57→17:41)
[2018-03-03] MEDS: THIAMINE 100 MG TABLET PO SCH (08:57)
[2018-03-03] MEDS: RIFAXIMIN 550 MG TABLET PO SCH ×2 (08:58→22:15)
[2018-03-03] MEDS: MEROPENEM 500 MG in SODIUM CHLORIDE 0.9% 100 ML IV SCH (09:02)
[2018-03-03] MEDS: LACTULOSE 20 GM/30 ML UDCUP PO SCH ×3 (14:36→22:20)
[2018-03-03 22:43] LABS: Hematocrit 26.9 VOL% (42.0-52.0); Hemoglobin 9.5 GM/DL (14.0-18.0)
[2018-03-04 07:36] LABS: Basophils % 0.2 % (0.0-0.8); Eosinophils # 0.2 10*3/uL (0.0-0.87); Hematocrit 23.2 VOL% (42.0-52.0); Immature Granulocytes % 0.8 %; Immature Granulocytes Absolute 0.07 #; Lymphocytes # 0.8 10*3/uL (1.4-4.0); Mean Corpuscular HGB Conc 34.5 GM/DL (32-36); Mean Corpuscular Hemoglobin 31 PG (27-34); Mean Platelet Volume 10.1 FL (9.6-12.0); Monocytes # 1.2 10*3/uL (0.11-0.8); Monocytes % 13.8 % (1.7-12.7); Neutrophils # 6.3 10*3/uL (1.4-7.4); Neutrophils % 74.2 % (38.7-73.9); Red Blood Count 2.55 MC/CUMM (3.8-5.5); Red Cell Distribution Width 16.3 % (9.3-17.3); White Blood Count 8.5 T/CUMM (4-12)
[2018-03-04 07:42] LABS: Platelet Count 36 T/CUMM (130-400)
[2018-03-04 07:58] LABS: Albumin 3.2 G/DL (3.4-5.0); Bilirubin,Direct 10.87 MG/DL (0.0-0.20); Bilirubin,Indirect 10.6 MG/DL (0.0-1.0); Osmolality,Calculated 265.5 MOS/KG (273-304); Total Protein 4.9 G/DL (6.4-8.3)
[2018-03-04 08:00] LABS: Anisocytosis 1+; Macrocytosis Slight; Platelet Estimate Decreased; Poikilocytosis 2+
[2018-03-04 08:01] LABS: Bilirubin,Total 21.5 MG/DL (0.2-1.0); Burr Cells 1+
[2018-03-04] MEDS: ALBUMIN 25% 25 GM in PREMIX 1 EACH IV SCH ×2 (09:01→15:41)
[2018-03-04] MEDS: FUROSEMIDE 40 MG/4 ML VIAL IV SCH ×2 (09:04→17:48)
[2018-03-04] MEDS: SPIRONOLACTONE 50 MG TABLET PO SCH (09:04)
[2018-03-04] MEDS: THIAMINE 100 MG TABLET PO SCH (09:04)
[2018-03-04] MEDS: RIFAXIMIN 550 MG TABLET PO SCH ×2 (09:04→21:11)
[2018-03-04] MEDS: SODIUM BICARBONATE 650 MG TABLET PO SCH ×2 (09:04→21:11)
[2018-03-04] MEDS: FOLIC ACID 1 MG TABLET PO SCH (09:04)
[2018-03-04] MEDS: LACTULOSE 20 GM/30 ML UDCUP PO SCH ×3 (09:05→21:12)
[2018-03-04] MEDS: SIMETHICONE CHEW 80 MG TABLET PO SCH ×4 (09:05→21:11)
[2018-03-04] MEDS ORDERED: PHYTONADIONE 10 MG/1 ML AMP IV ONE (12:00)
[2018-03-04 15:45] LABS: INR 2.4
[2018-03-04 15:47] LABS: PT Patient Result 24.1 SECS
[2018-03-04] MEDS ORDERED: ACETAMINOPHEN 325 MG TABLET PO PRN (19:32)
[2018-03-04] MEDS ORDERED: ACETAMINOPHEN 650 MG SUPP RECTAL ONE (19:36)
[2018-03-04] MEDS ORDERED: MEROPENEM 1,000 MG in SODIUM CHLORIDE 0.9% 100 ML IV SCH (21:00)
[2018-03-04 22:35] LABS: Apearance,Urine CLEAR (Clear); Bilirubin,Urine Negative (Negative); Blood, Urine Negative (Negative); Glucose,Urine (UA) Negative (Negative); Granular Casts,Urine 6 /LPF (0-1); Hyaline Casts,Urine 51 /LPF (0-3); Ketones,Urine 5 mg/dL (Negative); Nitrite,Urine Negative (Negative); Protein,Urine Negative; Squamous Epithelial Cell,Urine Occasional /HPF (0-10); Urine Color Amber (Yellow); Urine Specific Gravity 1.009 (1.001-1.035); Urine Urobilinogen < 2.0 EU/DL (0.2-1.0); WBC,Urine 1 /HPF (0-6)
[2018-03-04] MEDS: HYDROmorphone 2 MG/1 ML VIAL IV PRN (22:40)
[2018-03-05] MEDS: LEVOFLOXACIN INJ 750 MG in PREMIX 1 EACH IV SCH (00:25)
[2018-03-05] MEDS: ALBUTEROL/IPRATROPIUM 3 ML NEB RESP TX SCH ×4 (00:31→19:21)
[2018-03-05 05:12] LABS: Basophils % 0.1 % (0.0-0.8); Eosinophils # 0.2 10*3/uL (0.0-0.87); Eosinophils % 2.1 % (0.00-10.9); Hematocrit 21.5 VOL% (42.0-52.0); Hemoglobin 7.6 GM/DL (14.0-18.0); Immature Granulocytes % 0.9 %; Immature Granulocytes Absolute 0.07 #; Lymphocytes # 0.7 10*3/uL (1.4-4.0); Lymphocytes % 8.7 % (21.2-54.2); Mean Corpuscular HGB Conc 35.3 GM/DL (32-36); Mean Corpuscular Hemoglobin 32 PG (27-34); Mean Corpuscular Volume 89.6 FL (87-102); Mean Platelet Volume 9.6 FL (9.6-12.0); Monocytes % 11.9 % (1.7-12.7); Neutrophils # 6.1 10*3/uL (1.4-7.4); Neutrophils % 76.3 % (38.7-73.9); Red Cell Distribution Width 15.9 % (9.3-17.3)
[2018-03-05 05:13] LABS: Platelet Count 48 T/CUMM (130-400)
[2018-03-05 05:41] LABS: Burr Cells Slight; Hypochromasia 1+; Macrocytosis Slight; Ovalocytes Slight; Platelet Estimate Decreased
[2018-03-05 05:43] LABS: Albumin 3.2 G/DL (3.4-5.0); Bilirubin,Direct 11.45 MG/DL (0.0-0.20); Calcium 8.5 MG/DL (8.5-10.1); Osmolality,Calculated 272.1 MOS/KG (273-304); Potassium 3.8 MMOL/L (3.5-5.1); Total Protein 5.1 G/DL (6.4-8.3)
[2018-03-05 05:58] LABS: Bilirubin,Indirect 11.6 MG/DL (0.0-1.0)
[2018-03-05] MEDS: DORNASE ALFA 2.5 MG/2.5 ML VIAL RESP TX SCH ×2 (07:58→19:21)
[2018-03-05] MEDS ORDERED: VANCOMYCIN INJ 1,250 MG in SODIUM CHLORIDE 0.9% 250 ML IV PRN (08:19)
[2018-03-05] MEDS: ALBUMIN 25% 25 GM in PREMIX 1 EACH IV SCH ×2 (08:29→15:59)
[2018-03-05] MEDS ORDERED: FUROSEMIDE 100 MG/10 ML VIAL IV PRN (09:13)
[2018-03-05] MEDS: SPIRONOLACTONE 50 MG TABLET PO SCH ×2 (09:31→21:30)
[2018-03-05] MEDS: LACTULOSE 20 GM/30 ML UDCUP PO SCH ×3 (09:35→21:30)
[2018-03-05] MEDS: SIMETHICONE CHEW 80 MG TABLET PO SCH ×4 (09:35→21:30)
[2018-03-05] MEDS: FOLIC ACID 1 MG TABLET PO SCH (09:35)
[2018-03-05] MEDS: THIAMINE 100 MG TABLET PO SCH (09:35)
[2018-03-05] MEDS: SODIUM BICARBONATE 650 MG TABLET PO SCH ×2 (09:35→21:30)
[2018-03-05] MEDS: RIFAXIMIN 550 MG TABLET PO SCH ×2 (09:35→21:30)
[2018-03-05] MEDS ORDERED: VANCOMYCIN INJ 1,250 MG in SODIUM CHLORIDE 0.9% 250 ML IV ONE (10:00)
[2018-03-05] MEDS: PIPERACILLIN/TAZOBACTAM 3,375 MG in SODIUM CHLORIDE 0.9% 100 ML IV SCH ×2 (11:13→17:13)
[2018-03-05] MEDS: FUROSEMIDE 100 MG/10 ML VIAL IV SCH ×2 (11:15→15:10)
[2018-03-05] MEDS: FUROSEMIDE 40 MG/4 ML VIAL IV SCH (11:50)
[2018-03-05] MEDS: HYDROmorphone 2 MG/1 ML VIAL IV PRN (15:04)
[2018-03-05 19:15] LABS: Hematocrit 23.2 VOL% (42.0-52.0)
[2018-03-05] MEDS: NYSTATIN CREAM 15 GM TUBE TOP SCH (21:26)
[2018-03-06] MEDS: ALBUTEROL/IPRATROPIUM 3 ML NEB RESP TX SCH ×4 (00:26→19:51)
[2018-03-06] MEDS: PIPERACILLIN/TAZOBACTAM 3,375 MG in SODIUM CHLORIDE 0.9% 100 ML IV SCH ×3 (01:23→16:09)
[2018-03-06 04:03] LABS: Basophils % 0.3 % (0.0-0.8); Eosinophils # 0.3 10*3/uL (0.0-0.87); Eosinophils % 3.9 % (0.00-10.9); Hematocrit 23.3 VOL% (42.0-52.0); Hemoglobin 8.1 GM/DL (14.0-18.0); Immature Granulocytes % 1.1 %; Immature Granulocytes Absolute 0.07 #; Lymphocytes # 0.6 10*3/uL (1.4-4.0); Lymphocytes % 9.7 % (21.2-54.2); Mean Corpuscular HGB Conc 34.8 GM/DL (32-36); Mean Corpuscular Hemoglobin 31 PG (27-34); Mean Corpuscular Volume 88.3 FL (87-102); Mean Platelet Volume 9.7 FL (9.6-12.0); Monocytes # 0.7 10*3/uL (0.11-0.8); Monocytes % 11.6 % (1.7-12.7); Neutrophils # 4.7 10*3/uL (1.4-7.4); Neutrophils % 73.4 % (38.7-73.9); Red Blood Count 2.64 MC/CUMM (3.8-5.5); Red Cell Distribution Width 16.9 % (9.3-17.3); White Blood Count 6.4 T/CUMM (4-12)
[2018-03-06 04:07] LABS: Platelet Count 43 T/CUMM (130-400)
[2018-03-06 04:30] LABS: Anisocytosis 2+; Microcytosis 1+; Platelet Estimate Decreased
[2018-03-06 04:40] LABS: Albumin 3.4 G/DL (3.4-5.0); Bilirubin,Direct 10.83 MG/DL (0.0-0.20); Calcium 8.3 MG/DL (8.5-10.1); Osmolality,Calculated 277.5 MOS/KG (273-304); Potassium 3.6 MMOL/L (3.5-5.1); Total Protein 5.5 G/DL (6.4-8.3)
[2018-03-06 04:42] LABS: Bilirubin,Indirect 11.6 MG/DL (0.0-1.0); Bilirubin,Total 22.4 MG/DL (0.2-1.0)
[2018-03-06] MEDS: DORNASE ALFA 2.5 MG/2.5 ML VIAL RESP TX SCH ×2 (06:47→19:54)
[2018-03-06] MEDS: FUROSEMIDE 100 MG/10 ML VIAL IV SCH ×2 (08:47→15:53)
[2018-03-06] MEDS: SODIUM BICARBONATE 650 MG TABLET PO SCH ×2 (08:47→20:40)
[2018-03-06] MEDS: SPIRONOLACTONE 50 MG TABLET PO SCH ×2 (08:48→20:40)
[2018-03-06] MEDS: NYSTATIN CREAM 15 GM TUBE TOP SCH ×2 (08:48→20:41)
[2018-03-06] MEDS: RIFAXIMIN 550 MG TABLET PO SCH ×2 (08:48→20:40)
[2018-03-06] MEDS: LACTULOSE 20 GM/30 ML UDCUP PO SCH ×3 (08:48→20:40)
[2018-03-06] MEDS: FOLIC ACID 1 MG TABLET PO SCH (08:48)
[2018-03-06] MEDS: THIAMINE 100 MG TABLET PO SCH (08:48)
[2018-03-06] MEDS ORDERED: VANCOMYCIN INJ 1,250 MG in SODIUM CHLORIDE 0.9% 250 ML IV ONE (09:00)
[2018-03-06] MEDS: ALBUMIN 25% 25 GM in PREMIX 1 EACH IV SCH ×2 (10:00→15:53)
[2018-03-06] MEDS: SIMETHICONE CHEW 80 MG TABLET PO SCH ×4 (10:01→20:40)
[2018-03-06] MEDS: LEVOFLOXACIN INJ 750 MG in PREMIX 1 EACH IV SCH (20:40)
[2018-03-06 20:47] VITALS: BP 123/67
== END 2018-03-06 22:40 | disposition hospice, home (50) | DRG 280 ==
LOC: N.ED 12:38 → SUATTDRO 15:53 → N.EDINP 15:53 → N.2E 17:19
PROVIDERS: ADMIT Hospitalist; ATTEND Internal Medicine

== ENCOUNTER 2022-05-11 00:20 | Inpatient (IN) ==
[2022-05-11] MEDS ORDERED: SODIUM CHLORIDE 0.9% 500 ML IV STA (00:35)
[2022-05-11] MEDS ORDERED: MEROPENEM 1,000 MG in SODIUM CHLORIDE 0.9% 100 ML IV ONE (00:37)
[2022-05-11] MEDS ORDERED: ONDANSETRON 4 MG/2 ML VIAL IV PRN (00:38)
[2022-05-11] MEDS ORDERED: guaiFENesin/DM ER 600-30 MG TABLET PO PRN (00:38)
[2022-05-11] MEDS ORDERED: NICOTINE 21 MG/24 HR PATCH TRANSDERM PRN (00:38)
[2022-05-11] MEDS ORDERED: diphenhydrAMINE CAP 25 MG CAPSULE PO PRN (00:38)
[2022-05-11] MEDS ORDERED: ALBUTEROL/IPRATROPIUM 3 ML NEB RESP TX PRN (00:38)
[2022-05-11] MEDS ORDERED: ZALEPLON 5 MG CAPSULE PO PRN (00:38)
[2022-05-11] MEDS ORDERED: MORPHINE 2 MG/1 ML SYRINGE IV PRN (00:38)
[2022-05-11] MEDS ORDERED: VANCOMYCIN INJ 750 MG in SODIUM CHLORIDE 0.9% 250 ML IV PRN (00:52)
[2022-05-11] MEDS ORDERED: MEROPENEM 500 MG in SODIUM CHLORIDE 0.9% 100 ML IV SCH (01:00)
[2022-05-11] MEDS ORDERED: VANCOMYCIN INJ 2,500 MG in SODIUM CHLORIDE 0.9% 500 ML IV ONE (01:00)
[2022-05-11] MEDS ORDERED: VANCOMYCIN INJ 1,500 MG in SODIUM CHLORIDE 0.9% 500 ML IV ONE (02:00)
[2022-05-11] MEDS ORDERED: POTASSIUM CHLORIDE 20 MEQ TABLET PO ONE (04:18)
[2022-05-11 04:21] LABS: Basophils % 0.1 % (0.0-0.8); Eosinophils % 0.2 % (0.00-10.9); Hematocrit 31.4 VOL% (42.0-52.0); Hemoglobin 10.3 GM/DL (14.0-18.0); Immature Granulocytes % 3.7 %; Immature Granulocytes Absolute 0.72 #; Lymphocytes # 0.5 10*3/uL (1.4-4.0); Lymphocytes % 2.5 % (21.2-54.2); Mean Corpuscular HGB Conc 32.8 GM/DL (32-36); Mean Corpuscular Volume 92.4 FL (87-102); Mean Platelet Volume 11.1 FL (9.6-12.0); Monocytes # 0.9 10*3/uL (0.11-0.8); Monocytes % 4.6 % (1.7-12.7); Neutrophils % 88.9 % (38.7-73.9); Platelet Count 82 T/CUMM (130-400); Red Cell Distribution Width 16.5 % (9.3-17.3); White Blood Count 19.2 T/CUMM (4-12)
[2022-05-11] MEDS ORDERED: MAGNESIUM SULF RIDER 4 GM/100 ML PREMIX IV PRN (04:34)
[2022-05-11] MEDS ORDERED: POTASSIUM CHLORIDE RIDER 10 MEQ/100 ML PREMIX IV PRN (04:34)
[2022-05-11 04:37] LABS: Calcium 6.8 MG/DL (8.5-10.1); Osmolality,Calculated 275.5 MOS/KG (273-304); Potassium 2.7 MMOL/L (3.5-5.1)
[2022-05-11 04:39] LABS: Band Neutrophils 3 % (0-10); Lymphocytes 5 % (20-55); Total Cells Counted 100
[2022-05-11 04:40] LABS: Platelet Estimate Decreased
[2022-05-11] MEDS ORDERED: CALCIUM GLUCONATE RIDER 1,000 MG/50 ML PREMIX IV ONE ×3 (05:23→10:39)
[2022-05-11] MEDS ORDERED: SODIUM CHLORIDE 0.9% 250 ML IV ONE (05:23)
[2022-05-11] MEDS ORDERED: SODIUM CHLORIDE 0.9% 1,000 ML IV SCH (05:32)
[2022-05-11] MEDS: MAGNESIUM SULF RIDER 2 GM/50 ML PREMIX IV PRN ×2 (05:35→11:26)
[2022-05-11] MEDS: metroNIDAZOLE INJ 500 MG/100 ML PREMIX IV SCH ×2 (05:35→17:51)
[2022-05-11] MEDS: HYDROCORTISONE 100 MG VIAL IV SCH ×2 (06:37→17:51)
[2022-05-11] MEDS: PANTOPRAZOLE 40 MG TABLET PO SCH (09:07)
[2022-05-11 10:12] LABS: Calcium 6.1 MG/DL (8.5-10.1); Osmolality,Calculated 281.1 MOS/KG (273-304); Potassium 3.2 MMOL/L (3.5-5.1)
[2022-05-11] MEDS: azaTHIOprine 50 MG TABLET PO SCH (15:12)
[2022-05-11] MEDS: carvediloL 25 MG TABLET PO SCH ×2 (15:13→20:13)
[2022-05-11] MEDS: MEROPENEM 1,000 MG in SODIUM CHLORIDE 0.9% 100 ML IV SCH (20:08)
[2022-05-12 04:45] LABS: Basophils # 0.1 10*3/uL (0.0-0.2); Basophils % 0.2 % (0.0-0.8); Eosinophils # 0.1 10*3/uL (0.0-0.87); Eosinophils % 0.2 % (0.00-10.9); Hematocrit 28.6 VOL% (42.0-52.0); Hemoglobin 9.5 GM/DL (14.0-18.0); Immature Granulocytes % 2.4 %; Immature Granulocytes Absolute 0.65 #; Lymphocytes # 0.8 10*3/uL (1.4-4.0); Mean Corpuscular HGB Conc 33.2 GM/DL (32-36); Mean Platelet Volume 10.7 FL (9.6-12.0); Monocytes # 1.3 10*3/uL (0.11-0.8); Monocytes % 4.9 % (1.7-12.7); Neutrophils % 89.3 % (38.7-73.9); Red Blood Count 3.11 MC/CUMM (3.8-5.5); Red Cell Distribution Width 16.5 % (9.3-17.3); White Blood Count 26.9 T/CUMM (4-12)
[2022-05-12 04:47] LABS: Platelet Count 69 T/CUMM (130-400)
[2022-05-12 05:02] LABS: Albumin 2.3 G/DL (3.4-5.0); Bilirubin,Total 0.6 MG/DL (0.20-1.00); Calcium 7.1 MG/DL (8.5-10.1); Osmolality,Calculated 279.7 MOS/KG (273-304); Potassium 3.3 MMOL/L (3.5-5.1); Total Protein 5.1 G/DL (6.4-8.2)
[2022-05-12 05:16] LABS: Bacteria,Urine Occasional /HPF (Few); Glucose,Urine (UA) Negative (Negative); Mucus,Urine Occasional /LPF (Occasional); Protein,Urine 100 mg/dL (Negative); RBC,Urine 6 /HPF (0-4); Urine Appearance Clear (Clear); Urine Color Yellow (Yellow); Urine Specific Gravity 1.015 (1.001-1.035); Urine pH 5.5 (4.5-8.0)
[2022-05-12 05:17] LABS: Bilirubin,Urine Negative (Negative); Blood, Urine Moderate mg/dL (Negative); Ketones,Urine Negative (Negative); Nitrite,Urine Negative (Negative); Urine Urobilinogen 0.2 eU/dL (<2.0)
[2022-05-12 05:18] LABS: Eosinophils 1 % (0-10); Lymphocytes 3 % (20-55); Platelet Estimate Decreased; Total Cells Counted 100
[2022-05-12 05:20] LABS: Anisocytosis Slight
[2022-05-12] MEDS: metroNIDAZOLE INJ 500 MG/100 ML PREMIX IV SCH ×2 (05:45→16:00)
[2022-05-12] MEDS: HYDROCORTISONE 100 MG VIAL IV SCH ×2 (06:13→18:33)
[2022-05-12] MEDS: TACROLIMUS 0.5 MG CAPSULE PO SCH (08:15)
[2022-05-12] MEDS: carvediloL 25 MG TABLET PO SCH ×2 (08:16→20:44)
[2022-05-12] MEDS: azaTHIOprine 50 MG TABLET PO SCH (08:16)
[2022-05-12] MEDS: PANTOPRAZOLE 40 MG TABLET PO SCH (08:16)
[2022-05-12 09:26] LABS: Hepatitis B Core IgM Quant < 0.05 Index; Hepatitis B Surface Ag Quant < 0.10 Index; Hepatitis B Surface Ag Result Non-Reactive (NonReactive); Hepatitis C Virus Ab Quant < 0.02 Index; Hepatitis C Virus Ab Result Non-Reactive (NonReactive)
[2022-05-12] MEDS ORDERED: HEPARIN 10,000 UNIT/10 ML VIAL IV SCH (10:00)
[2022-05-12] MEDS ORDERED: VANCOMYCIN INJ 750 MG in SODIUM CHLORIDE 0.9% 250 ML IV ONE (17:00)
[2022-05-12] MEDS: MEROPENEM 1,000 MG in SODIUM CHLORIDE 0.9% 100 ML IV SCH (20:45)
[2022-05-13 05:32] LABS: Basophils % 0.1 % (0.0-0.8); Eosinophils # 0.1 10*3/uL (0.0-0.87); Eosinophils % 0.8 % (0.00-10.9); Hematocrit 31.5 VOL% (42.0-52.0); Immature Granulocytes % 3.1 %; Immature Granulocytes Absolute 0.49 #; Lymphocytes # 0.8 10*3/uL (1.4-4.0); Lymphocytes % 4.8 % (21.2-54.2); Mean Corpuscular HGB Conc 31.7 GM/DL (32-36); Mean Corpuscular Volume 94.9 FL (87-102); Mean Platelet Volume 11.1 FL (9.6-12.0); Monocytes # 0.9 10*3/uL (0.11-0.8); Monocytes % 5.7 % (1.7-12.7); Neutrophils % 85.5 % (38.7-73.9); Platelet Count 74 T/CUMM (130-400); Red Blood Count 3.32 MC/CUMM (3.8-5.5); Red Cell Distribution Width 16.4 % (9.3-17.3); White Blood Count 15.7 T/CUMM (4-12)
[2022-05-13] MEDS: HYDROCORTISONE 100 MG VIAL IV SCH ×2 (05:53→18:09)
[2022-05-13] MEDS: metroNIDAZOLE INJ 500 MG/100 ML PREMIX IV SCH (05:54)
[2022-05-13 05:56] LABS: Eosinophils 1 % (0-10); Lymphocytes 6 % (20-55); Platelet Estimate Decreased; Total Cells Counted 100
[2022-05-13 05:57] LABS: Albumin 2.3 G/DL (3.4-5.0); Bilirubin,Total 0.4 MG/DL (0.20-1.00); Calcium 7.4 MG/DL (8.5-10.1); Osmolality,Calculated 287.5 MOS/KG (273-304); Potassium 3.3 MMOL/L (3.5-5.1); Total Protein 5.2 G/DL (6.4-8.2)
[2022-05-13 05:57] LABS: Hypochromia Slight; Ovalocytes Slight
[2022-05-13] MEDS ORDERED: BUPIVACAINE MPF 0.25% 10 ML VIAL ONE (07:53)
[2022-05-13] MEDS ORDERED: TISSUE ADHESIVE 1 EACH APPLICATOR TOP ONE (07:53)
[2022-05-13] MEDS ORDERED: LIDOCAINE 1% 5 ML VIAL ONE (07:53)
[2022-05-13] MEDS ORDERED: LIDOCAINE 1%/EPI INJ 20 ML VIAL ONE (08:21)
[2022-05-13] MEDS ORDERED: SODIUM CHLORIDE 0.9% 250 ML IV SCH (08:30)
[2022-05-13] MEDS: carvediloL 25 MG TABLET PO SCH ×2 (09:51→16:43)
[2022-05-13] MEDS: azaTHIOprine 50 MG TABLET PO SCH (09:51)
[2022-05-13] MEDS: PANTOPRAZOLE 40 MG TABLET PO SCH (09:51)
[2022-05-13] MEDS: MEROPENEM 1,000 MG in SODIUM CHLORIDE 0.9% 100 ML IV SCH (21:43)
[2022-05-14] MEDS: HYDROCORTISONE 100 MG VIAL IV SCH ×2 (05:51→20:50)
[2022-05-14 06:17] LABS: Basophils % 0.1 % (0.0-0.8); Eosinophils # 0.2 10*3/uL (0.0-0.87); Eosinophils % 1.8 % (0.00-10.9); Hematocrit 29.9 VOL% (42.0-52.0); Hemoglobin 9.4 GM/DL (14.0-18.0); Immature Granulocytes % 0.5 %; Immature Granulocytes Absolute 0.04 #; Lymphocytes # 0.8 10*3/uL (1.4-4.0); Lymphocytes % 9.7 % (21.2-54.2); Mean Corpuscular HGB Conc 31.4 GM/DL (32-36); Mean Corpuscular Volume 95.8 FL (87-102); Mean Platelet Volume 11.3 FL (9.6-12.0); Monocytes # 0.5 10*3/uL (0.11-0.8); Monocytes % 6.3 % (1.7-12.7); Neutrophils % 81.6 % (38.7-73.9); Platelet Count 105 T/CUMM (130-400); Red Blood Count 3.12 MC/CUMM (3.8-5.5); Red Cell Distribution Width 16.8 % (9.3-17.3); White Blood Count 8.1 T/CUMM (4-12)
[2022-05-14 06:45] LABS: Alanine Aminotransferase 14 U/L (16-61); Albumin 2.4 G/DL (3.4-5.0); Alkaline Phosphatase 79 U/L (45-117); Aspartate Amino Transferase 7 U/L (0-37); Bilirubin,Total < 0.39 MG/DL (0.20-1.00); Blood Urea Nitrogen 61 MG/DL (7-18); Calcium 7.3 MG/DL (8.5-10.1); Carbon Dioxide 24 MMOL/L (21-32); Chloride 106 MMOL/L (98-107); Glucose 111 MG/DL (74-106); Osmolality,Calculated 294.5 MOS/KG (273-304); Potassium 3.3 MMOL/L (3.5-5.1); Sodium 139 MMOL/L (136-145); Total Protein 5.2 G/DL (6.4-8.2)
[2022-05-14] MEDS: azaTHIOprine 50 MG TABLET PO SCH (09:21)
[2022-05-14] MEDS: carvediloL 25 MG TABLET PO SCH ×2 (09:21→17:42)
[2022-05-14] MEDS: TACROLIMUS 0.5 MG CAPSULE PO SCH (09:21)
[2022-05-14] MEDS: PANTOPRAZOLE 40 MG TABLET PO SCH (09:21)
[2022-05-14 15:11] LABS: % Iron Saturation 18.8 % (18-50)
[2022-05-14 15:17] LABS: Folate 13.95 NG/ML (5.38-24.0)
[2022-05-14] MEDS ORDERED: MEROPENEM 500 MG in SODIUM CHLORIDE 0.9% 100 ML IV SCH (17:00)
[2022-05-14] MEDS ORDERED: GENTAMICIN INJ 80 MG/50 ML PREMIX IV ONE ×2 (17:00→21:00)
[2022-05-15 06:14] LABS: Basophils % 0.3 % (0.0-0.8); Eosinophils # 0.2 10*3/uL (0.0-0.87); Hematocrit 31.7 VOL% (42.0-52.0); Hemoglobin 9.9 GM/DL (14.0-18.0); Immature Granulocytes % 0.5 %; Immature Granulocytes Absolute 0.03 #; Lymphocytes # 0.8 10*3/uL (1.4-4.0); Mean Corpuscular HGB Conc 31.2 GM/DL (32-36); Mean Corpuscular Volume 95.2 FL (87-102); Mean Platelet Volume 11.1 FL (9.6-12.0); Monocytes # 0.4 10*3/uL (0.11-0.8); Monocytes % 5.8 % (1.7-12.7); Neutrophils % 78.4 % (38.7-73.9); Platelet Count 122 T/CUMM (130-400); Red Blood Count 3.33 MC/CUMM (3.8-5.5); Red Cell Distribution Width 16.7 % (9.3-17.3); White Blood Count 6.3 T/CUMM (4-12)
[2022-05-15 06:24] LABS: Calcium 7.7 MG/DL (8.5-10.1); Osmolality,Calculated 302.3 MOS/KG (273-304); Potassium 3.7 MMOL/L (3.5-5.1)
[2022-05-15 06:53] LABS: Risk Ratio 2.94; Thyroid Stimulating Hormone 1.97 uIU/ml (0.358-3.74); VLDL Cholesterol 17.6 MG/DL
[2022-05-15] MEDS: PANTOPRAZOLE 40 MG TABLET PO SCH (08:35)
[2022-05-15] MEDS: azaTHIOprine 50 MG TABLET PO SCH (08:35)
[2022-05-15] MEDS: HYDROCORTISONE 100 MG VIAL IV SCH ×2 (08:38→21:18)
[2022-05-15] MEDS: carvediloL 25 MG TABLET PO SCH ×2 (08:40→16:00)
[2022-05-16 05:17] LABS: Basophils % 0.2 % (0.0-0.8); Eosinophils # 0.2 10*3/uL (0.0-0.87); Hematocrit 30.5 VOL% (42.0-52.0); Hemoglobin 9.5 GM/DL (14.0-18.0); Immature Granulocytes % 0.7 %; Immature Granulocytes Absolute 0.04 #; Lymphocytes # 0.8 10*3/uL (1.4-4.0); Lymphocytes % 12.5 % (21.2-54.2); Mean Corpuscular HGB Conc 31.1 GM/DL (32-36); Mean Corpuscular Volume 94.4 FL (87-102); Mean Platelet Volume 10.7 FL (9.6-12.0); Monocytes # 0.5 10*3/uL (0.11-0.8); Monocytes % 8.5 % (1.7-12.7); Neutrophils % 75.1 % (38.7-73.9); Platelet Count 128 T/CUMM (130-400); Red Blood Count 3.23 MC/CUMM (3.8-5.5); Red Cell Distribution Width 16.8 % (9.3-17.3)
[2022-05-16 05:40] LABS: Calcium 7.7 MG/DL (8.5-10.1); Osmolality,Calculated 305.4 MOS/KG (273-304); Potassium 3.7 MMOL/L (3.5-5.1)
[2022-05-16] MEDS ORDERED: fentaNYL 100 MCG/2 ML VIAL ONE (08:20)
[2022-05-16] MEDS ORDERED: LIDOCAINE 2% 5 ML VIAL ONE (08:20)
[2022-05-16] MEDS ORDERED: SODIUM CHLORIDE 0.9% 100 ML IV ONE (08:20)
[2022-05-16] MEDS ORDERED: ONDANSETRON 4 MG/2 ML VIAL ONE (08:20)
[2022-05-16] MEDS ORDERED: propofoL 200 MG/20 ML VIAL IV ONE (08:20)
[2022-05-16] MEDS ORDERED: HEPARIN 5,000 UNIT/1 ML VIAL ONE ×2 (08:24→08:53)
[2022-05-16] MEDS ORDERED: LIDOCAINE 1%/EPI INJ 20 ML VIAL ONE ×2 (08:24→08:53)
[2022-05-16] MEDS ORDERED: BUPIVACAINE MPF 0.25% 10 ML VIAL ONE ×2 (08:26→08:53)
[2022-05-16] MEDS ORDERED: SODIUM CHLORIDE 0.9% 250 ML IV SCH (08:30)
[2022-05-16] MEDS ORDERED: TISSUE ADHESIVE 1 EACH APPLICATOR TOP ONE (09:41)
[2022-05-16] MEDS: TACROLIMUS 0.5 MG CAPSULE PO SCH (15:14)
[2022-05-16] MEDS: FERROUS SULFATE 325 MG TABLET PO SCH (15:15)
[2022-05-16] MEDS: HYDROCORTISONE 100 MG VIAL IV SCH ×2 (15:15→22:21)
[2022-05-16] MEDS: azaTHIOprine 50 MG TABLET PO SCH (15:15)
[2022-05-16] MEDS: PANTOPRAZOLE 40 MG TABLET PO SCH (15:15)
[2022-05-16] MEDS: carvediloL 25 MG TABLET PO SCH ×2 (15:41→16:17)
[2022-05-16] MEDS: hydrALAZINE 20 MG/1 ML VIAL IV PRN (16:18)
[2022-05-16] MEDS ORDERED: FERRIC GLUCONATE COMPLEX 125 MG in SODIUM CHLORIDE 0.9% 100 ML IV ONE (17:00)
[2022-05-16] MEDS: ACETAMINOPHEN 325 MG TABLET PO PRN ×2 (17:50→22:21)
[2022-05-17] MEDS: hydrALAZINE 20 MG/1 ML VIAL IV PRN (04:15)
[2022-05-17 05:44] LABS: Basophils % 0.2 % (0.0-0.8); Eosinophils # 0.2 10*3/uL (0.0-0.87); Eosinophils % 3.9 % (0.00-10.9); Hematocrit 30.7 VOL% (42.0-52.0); Hemoglobin 9.9 GM/DL (14.0-18.0); Immature Granulocytes % 0.2 %; Immature Granulocytes Absolute 0.01 #; Lymphocytes # 0.6 10*3/uL (1.4-4.0); Lymphocytes % 14.1 % (21.2-54.2); Mean Corpuscular HGB Conc 32.2 GM/DL (32-36); Mean Corpuscular Volume 93.9 FL (87-102); Mean Platelet Volume 10.9 FL (9.6-12.0); Monocytes # 0.4 10*3/uL (0.11-0.8); Neutrophils % 71.6 % (38.7-73.9); Platelet Count 150 T/CUMM (130-400); Red Blood Count 3.27 MC/CUMM (3.8-5.5); Red Cell Distribution Width 16.9 % (9.3-17.3); White Blood Count 4.1 T/CUMM (4-12)
[2022-05-17 06:05] LABS: Osmolality,Calculated 291.3 MOS/KG (273-304); Potassium 3.9 MMOL/L (3.5-5.1)
[2022-05-17 06:11] LABS: Albumin 2.5 G/DL (3.4-5.0); Bilirubin,Direct 0.12 MG/DL (0.0-0.20); Bilirubin,Indirect 0.4 MG/DL (0.0-1.0); Bilirubin,Total 0.5 MG/DL (0.20-1.00); Total Protein 5.1 G/DL (6.4-8.2)
[2022-05-17] MEDS: FERROUS SULFATE 325 MG TABLET PO SCH (08:52)
[2022-05-17] MEDS: PANTOPRAZOLE 40 MG TABLET PO SCH (08:52)
[2022-05-17] MEDS: azaTHIOprine 50 MG TABLET PO SCH (08:52)
[2022-05-17] MEDS: HYDROCORTISONE 100 MG VIAL IV SCH (08:52)
[2022-05-17] MEDS: carvediloL 25 MG TABLET PO SCH (08:52)
[2022-05-17] MEDS ORDERED: FERRIC GLUCONATE COMPLEX 125 MG in SODIUM CHLORIDE 0.9% 100 ML IV ONE (09:00)
[2022-05-17] MEDS ORDERED: amLODIPine 5 MG TABLET PO SCH (09:00)
[2022-05-17 11:10] VITALS: BP 184/77
== END 2022-05-17 12:15 | disposition home or self-care (01) | DRG 206 ==
LOC: EDBD → EDUNIT# → N.ED 00:20 → N.EDINP 00:38 → SUATTDRO 00:38 → N.ICU 04:40 → N.5E 05-13 14:15
PROVIDERS: ADMIT Internal Medicine; ATTEND Internal Medicine